=== PATIENT | female | born 1970 | race Caucasian/White ===

== ENCOUNTER 2020-05-05 09:10 | Emergency (ER) | payer OTHER, SELFPAY ==
[2020-05-05] VITALS (18 sets, daily range): BP systolic 137–198; BP diastolic 69–101; PULSE 42–64; RESP 11–29; TEMP 36.9; O2SAT 95–99; BMI 30.5
--- NOTE | 2020-05-05 09:21 | DI.RAD.S_ITS ---
PROCEDURE: XR CHEST 1V INDICATIONS: chest pain TECHNIQUE: One view of the chest was acquired. COMPARISON: None. FINDINGS: Surgical changes and devices: None. Lungs and pleura: Lungs are clear. No pleural effusions or pneumothorax. There may be mild scarring within the lung apices. Mediastinum: Mediastinal contours appear normal. Heart size is normal. Bones and chest wall: No suspicious bony lesions. Degenerative changes of the spine and shoulders are not well characterized. Overlying soft tissues appear unremarkable. IMPRESSION: No acute cardiopulmonary process is evident. Dictated by: Carlos Salmon M.D. on 05/05/2020 at 8:52 Approved by: Carlos Salmon M.D. on 05/05/2020 at 8:53
[2020-05-05 09:26] LABS: Add Manual Diff / Slide Review NO; Basophils Absolute Auto 0 /uL (0-100); Basophils Percent Auto 0.7 % (0-2); Eosinophils Absolute Auto 100 /uL (0-450); Hematocrit 42.4 % (36-46); Hemoglobin 14.8 g/dL (12.0-16.0); Lymphocytes Absolute Auto 1800 /uL (1100-4500); Lymphocytes Percent Auto 37.5 % (25-40); Mean Corpuscular HGB Conc 34.8 % (30-36); Mean Corpuscular Hemoglobin 33.5 PG (26-34); Mean Corpuscular Volume 96.1 fL (80-100); Monocytes Absolute Auto 400 /uL (0-900); Monocytes Percent Auto 9.1 % (3-14); Neutrophils Absolute Auto 2500 /uL (1500-7000); Neutrophils Percent Auto 50.7 % (50-75); Platelet Count 196 X10^3/uL (150-400); Red Blood Cell Count 4.41 X10^6/uL (4.0-5.2); Red Cell Distribution Width 12.9 % (11.6-14.8); White Blood Cell Count 4.9 X10^3/uL (4.5-11.0)
--- NOTE | 2020-05-05 09:29 | ED_ITS ---
HPI - Chest Pain General Chief Complaint: Chest Pain Stated Complaint: pressure in chest Time Seen by Provider: 05/05/20 09:18 Source: patient Mode of arrival: Ambulatory Limitations: no limitations History of Present Illness HPI narrative: Patient is a 50-year-old healthy female who presents with chest pressure it which started this morning. She says she woke up about 430 this morning like she always does not know she had some pressure across her chest. It is nonradiating nothing makes it better or worse it seems to be constant. She denies any shortness of breath with exertion she denies nausea or diaphore sis. complaint: chest pain Onset (ago): hour(s) Duration: constant Onset: during rest Severity: mild Quality: heaviness Pain radiation: none Relieving factors: nothing Exacerbating factors: nothing Related Data Home Medications Medication Instructions Recorded Confirmed No Known Home Medications 05/05/20 05/05/20 Allergies Allergy/AdvReac Type Severity Reaction Status Date / Time No Known Drug Allergies Allergy Verified 05/05/20 09:21 Review of Systems Review of Systems Narrative: GENERAL: Denies chills, fatigue, malaise, fever, sweats, travel HEENT: Denies sinus pain, ear pain, sore throat, difficulty swallowing, neck pain RESPIRATORY: Denies dyspnea, cough, wheezing, hemoptysis, sputum. CARDIOVASCULAR: See HPI GASTROINTESTINAL: Denies nausea, vomiting, abdominal pain, diarrhea, constipation, melena. : Denies dysuria, frequency, incontinence, hematuria, urinary retention, flank pain. MUSCULOSKELETAL: Denies weakness, joint pain, or bony pain SKIN: No rash, no erythema, no pruritus NEUROLOGIC: Denies weakness, dizziness, headache, numbness, change in speech, confusion PSYCHIATRIC: No concerning psychosocial issues. 12 point review of systems is negative except for those stated above and HPI Patient History Social History Smoking Status: Unknown if ever smoked Smoking Status: Unknown if ever smoked alcohol intake frequency: holidays/special occasions only Substance Use Type: does not use Exam Initial Vital Signs Initial Vital Signs: Vital Signs Temperature 98.4 F 05/05/20 09:11 Pulse Rate 53 L 05/05/20 09:11 Respiratory Rate 20 05/05/20 09:11 Blood Pressure 194/101 H 05/05/20 09:11 Pulse Oximetry 99 05/05/20 09:11 GENERAL: Well-appearing, well-nourished and in no acute distress. HEENT: Head atraumatic,EOMI, pupils reactive, face symmetric CARDIOVASCULAR: Regular rate and rhythm without murmurs, rubs or gallops. RESPIRATORY: Breath sounds equal bilaterally, no wheezes rales or rhonchi. ABDOMEN: Soft, nontender. Normoactive bowel sounds all 4 quadrants. No guarding or rebound. RECTAL: Hemoccult-positive, no hemorrhoids, nontender : No CVA tenderness EXTREMITIES: Normal range of motion, no clubbing or edema. Neurovascularly intact NEUROLOGICAL: Alert and oriented x4.Normal gait and speech. SKIN: Warm, dry, no laceration, no petechiae, no rashes or lesions. Scores HEART Score Heart Score history: Slightly Suspicious Heart Score EKG: Normal Heart Score Age: 45-64 years old Heart Score risk factors: No known risk factors Heart Score troponin: < or = to normal limit Heart Score Total: 1 Course Orders Ordered: ED Orders 05/05/20 09:15 Complete Blood Count AUTO DIFF Stat Comprehensive Metabolic Panel Stat Lipase Stat Partial Thromboplastin Time Stat Prothrombin Time INR Stat Troponin & CK Cardiac Panel Stat 05/05/20 09:21 XR chest 1V Stat EKG-12 Lead Stat 05/05/20 10:52 EKG-12 Lead Routine 05/05/20 12:05 Troponin I Stat Discontinued Medications Acetaminophen (Tylenol) 975 mg PO NOW ONE Stop: 05/05/20 10:46 Last Admin: 05/05/20 11:00 Dose: 975 mg Documented by: SABRINA Aspirin (Aspirin Chew) 324 mg PO NOW ONE Stop: 05/05/20 10:00 Last Admin: 05/05/20 10:15 Dose: 324 mg Documented by: SABRINA Nitroglycerin (Nitrostat) 0.4 mg SL [id number] PRN PRN Reason: Chest Pain Last Admin: 05/05/20 10:38 Dose: 0.4 mg Documented by: Admin: 05/05/20 10:21 Dose: 0.4 mg Documented by: SABRINA Vital Signs Vital signs: Vital Signs - 8 hr 05/05/20 09:11 05/05/20 09:16 05/05/20 09:17 Temperature 98.4 F Pulse Rate 53 L 62 58 L Respiratory Rate 20 Blood Pressure 194/101 H Pulse Oximetry 99 99 98 05/05/20 09:30 05/05/20 09:33 05/05/20 10:00 Temperature Pulse Rate 47 L 47 L 44 L Respiratory Rate 29 H 25 H 14 Blood Pressure Pulse Oximetry 98 97 96 05/05/20 10:01 05/05/20 10:30 05/05/20 10:36 Temperature Pulse Rate 46 L 48 L 42 L Respiratory Rate 14 15 18 Blood Pressure 154/70 H 152/72 H 150/81 H Pulse Oximetry 97 96 97 05/05/20 10:38 05/05/20 10:44 05/05/20 11:00 Temperature Pulse Rate 44 L 64 43 L Respiratory Rate 21 11 L Blood Pressure 150/81 H 198/100 H Pulse Oximetry 95 98 05/05/20 11:01 05/05/20 11:15 05/05/20 11:30 Temperature Pulse Rate 42 L 46 L Respiratory Rate 11 L 13 Blood Pressure 165/77 H 149/73 H Pulse Oximetry 97 96 05/05/20 12:00 05/05/20 12:30 05/05/20 13:00 Temperature Pulse Rate 43 L 42 L 48 L Respiratory Rate 16 11 L 15 Blood Pressure 157/78 H 145/71 H 137/69 Pulse Oximetry 97 99 98 MDM - Chest Pain Lab Data Attestation: I reviewed the patient's lab results. Result diagrams: 05/05/20 09:15 05/05/20 09:15 Labs: Lab Results 05/05/20 05/05/20 05/05/20 Range/Units 09:15 09:15 09:15 WBC 4.9 (4.5-11.0) X10^3/uL RBC 4.41 (4.0-5.2) X10^6/uL Hgb 14.8 (12.0-16.0) g/dL Hct 42.4 (36-46) % MCV 96.1 (80-100) fL MCH 33.5 (26-34) PG MCHC 34.8 (30-36) % RDW 12.9 (11.6-14.8) % Plt Count 196 (150-400) X10^3/uL Neut % (Auto) 50.7 (50-75) % Lymph % (Auto) 37.5 (25-40) % [place] % (Auto) 9.1 (3-14) % Eos % (Auto) 2.0 (2-4) % Baso % (Auto) 0.7 (0-2) % Neut # (Auto) 2500 (3065-7152) /uL Lymph # (Auto) 1800 (2052-0070) /uL [place] # (Auto) 400 (0-900) /uL Eos # (Auto) 100 (0-450) /uL Baso # (Auto) 0 (0-100) /uL PT 11.1 (10.1-12.7) SECONDS INR 1.0 (0.9-1.3) APTT 32 (26.4-36.2) SECONDS Sodium 137 (137-145) mmol/L Potassium 5.0 (3.4-5.1) mmol/L Chloride 101 (98-107) mmol/L Carbon Dioxide 28 (22-32) mmol/L BUN 16 (7-17) mg/dL Creatinine 0.80 (0.52-1.04) mg/dL Estimated GFR > 60.0 (>60) mL/min BUN/Creatinine Ratio 20.0 (6-22) Glucose 101 H (70-100) mg/dL Calcium 9.9 (8.4-10.2) mg/dL Total Bilirubin 1.3 (0.2-1.3) mg/dL AST 81 H (14-36) IU/L ALT 101 H (<35) IU/L Alkaline Phosphatase 60 (38-126) U/L Total Creatine Kinase 136 H (30-135) U/L CK-MB (CK-2) 1.40 (<2.37) ng/mL CK-MB (CK-2) Rel Index 1.0 L (1.5-5.0) % Troponin I 0.016 (0.01-0.034) ng/mL Total Protein 8.0 (6.3-8.2) g/dL Albumin 4.7 (3.5-5.0) g/dL Globulin 3.3 (1.7-4.1) g/dL Albumin/Globulin Ratio 1.4 (1.0-2.8) Lipase 83 (23-300) U/L 05/05/20 Range/Units 12:05 WBC (4.5-11.0) X10^3/uL RBC (4.0-5.2) X10^6/uL Hgb (12.0-16.0) g/dL Hct (36-46) % MCV (80-100) fL MCH (26-34) PG MCHC (30-36) % RDW (11.6-14.8) % Plt Count (150-400) X10^3/uL Neut % (Auto) (50-75) % Lymph % (Auto) (25-40) % [place] % (Auto) (3-14) % Eos % (Auto) (2-4) % Baso % (Auto) (0-2) % Neut # (Auto) (4630-4852) /uL Lymph # (Auto) (0345-2967) /uL [place] # (Auto) (0-900) /uL Eos # (Auto) (0-450) /uL Baso # (Auto) (0-100) /uL PT (10.1-12.7) SECONDS INR (0.9-1.3) APTT (26.4-36.2) SECONDS Sodium (137-145) mmol/L Potassium (3.4-5.1) mmol/L Chloride (98-107) mmol/L Carbon Dioxide (22-32) mmol/L BUN (7-17) mg/dL Creatinine (0.52-1.04) mg/dL Estimated GFR (>60) mL/min BUN/Creatinine Ratio (6-22) Glucose (70-100) mg/dL Calcium (8.4-10.2) mg/dL Total Bilirubin (0.2-1.3) mg/dL AST (14-36) IU/L ALT (<35) IU/L Alkaline Phosphatase (38-126) U/L Total Creatine Kinase (30-135) U/L CK-MB (CK-2) (<2.37) ng/mL CK-MB (CK-2) Rel Index (1.5-5.0) % Troponin I < 0.012 (0.01-0.034) ng/mL Total Protein (6.3-8.2) g/dL Albumin (3.5-5.0) g/dL Globulin (1.7-4.1) g/dL Albumin/Globulin Ratio (1.0-2.8) Lipase (23-300) U/L Imaging Data Chest x-ray: Radiologist's Impression: PROCEDURE: XR CHEST 1V INDICATIONS: chest pain TECHNIQUE: One view of the chest was acquired. COMPARISON: None. FINDINGS: Surgical changes and devices: None. Lungs and pleura: Lungs are clear. No pleural effusions or pneumothorax. There may be mild scarring within the lung apices. Mediastinum: Mediastinal contours appear normal. Heart size is normal. Bones and chest wall: No suspicious bony lesions. Degenerative changes of the spine and shoulders are not well characterized. Overlying soft tissues appear unremarkable. IMPRESSION: No acute cardiopulmonary process is evident. Dictated by: Carlos Salmon M.D. on 05/05/2020 at 8:52 Approved by: Carlos Salmon M.D. on 05/05/2020 at 8:53 ECG Data Attestation: I personally reviewed and interpreted this ECG as follows: Prior ECG tracings: not available for review Interpretation: Normal sinus rhythm rate 65 p.r. interval 148 QRS [address] elevation or depression, Q-waves noted in AVF and lead 3 EKG 2. Normal sinus rhythm rate 42 p.r. interval 186 QRS [address] elev ation depression or T-wave inversions similar to previous EKG MDM Narrative Medical decision making narrative: Chest discomfort improved after 2 nitroglycerin. She has low risk heart score 2-troponins no changes on her EKG. She is noted to be bradycardic at times but seems a completely asymptomatic. At this time I recommend she follow up at as an outpatient. I discussed all findings with the patient and spouse, Education has been performed regarding treatment plan, diagnosis, warning signs and symptoms and all concerns have been addressed. Verbally agree with and understood all of the above. Discharge Plan Departure Patient Disposition: Home Clinical Impression: Atypical chest pain Discharge Date/Time: 05/05/20 13:20 Instructions: DI for Atypical Chest Pain Activity Restrictions/Additional Instructions: *You have been diagnosed with atypical chest pain *What to do: At this time her blood work is overall reassuring however I recommend he follow up with her PCP for further cardiac evaluation such as a stress test and/or echocardiogram *Continue to take medications as directed *Follow up with your primary care provider in 2-3 days *Return to ER if you should have increasing or worsening chest pain shortness of breath, or any new, worsening or concerning symptoms Prescriptions: No Action No Known Home Medications RF: 0 Referrals: Kylie Vargas DO [Primary Care Provider] -
[2020-05-05 09:32] LABS: Prothrombin Time 11.1 SECONDS (10.1-12.7)
[2020-05-05 09:35] LABS: PTT Partial Thromboplastin Tim 32 SECONDS (26.4-36.2)
[2020-05-05 09:38] LABS: Alanine Aminotransferase 101 IU/L (<35); Albumin 4.7 g/dL (3.5-5.0); Albumin Globulin Ratio 1.4 (1.0-2.8); Alkaline Phosphatase 60 U/L (38-126); Aspartate Aminotransferase 81 IU/L (14-36); Bilirubin Total 1.3 mg/dL (0.2-1.3); Blood Urea Nitrogen 16 mg/dL (7-17); Calcium 9.9 mg/dL (8.4-10.2); Carbon Dioxide 28 mmol/L (22-32); Chloride 101 mmol/L (98-107); Creatine Kinase 136 U/L (30-135); Estimated Glomerular Filt Rate > 60.0 mL/min (>60); Globulin 3.3 g/dL (1.7-4.1); Glucose 101 mg/dL (70-100); Lipase 83 U/L (23-300); Sodium 137 mmol/L (137-145)
[2020-05-05 09:48] LABS: Troponin I 0.016 ng/mL (0.01-0.034)
[2020-05-05 09:53] LABS: HEMOLYSIS 86 (0-50)
[2020-05-05] MEDS: ASPIRIN 81 MG CHEW TAB 324 MG PO (10:15)
[2020-05-05] MEDS: NITROGLYCERIN 0.4 MG SL TAB SL ×2 (10:21→10:38)
--- NOTE | 2020-05-05 10:21 | PC.NURSE ---
chest pain 6/10, one nitro given
--- NOTE | 2020-05-05 10:46 | PC.NURSE ---
after second nitro pt's pain is 0/10
[2020-05-05] MEDS: ACETAMINOPHEN 325 MG TABLET 975 MG PO (11:00)
--- NOTE | 2020-05-05 12:13 | PC.NURSE ---
pt heart rate in the high 30's. pt states she feels fine, denies cp, sob, dizziness. pt states her heart rate is normally in the 40's.
[2020-05-05 12:47] LABS: Troponin I < 0.012 ng/mL (0.01-0.034)
== END 2020-05-05 13:20 | disposition home or self-care (01) ==
PROVIDERS: Emergency Provider Emergency Medicine; PCP Family Medicine
DX: R07.89 Other chest pain (principal)
CPT/HCPCS: 36415; 71045; 80053; 82550; 82553; 83690; 84484; 85025; 85610; 85730; 93005; 99284

== ENCOUNTER → 2020-09-03 14:00 | Outpatient (CLI) | payer OTHER, SELFPAY ==
[2020-09-05 02:25] LABS: COVID19 Sendout Not Detected (Not Detect)
== END ==
PROVIDERS: PCP Family Medicine; Visit Provider Nurse Practitioner
DX: Z11.59 Encounter for screening for other viral diseases (principal)
CPT/HCPCS: 87635

== ENCOUNTER → 2020-10-08 08:11 | Outpatient (CLI) | payer OTHER, SELFPAY ==
[2020-10-08 09:52] LABS: COVID19 -Nasal RAPID Negative (Negative)
== END ==
PROVIDERS: PCP Family Medicine; Visit Provider Physician Assistant
DX: Z11.59 Encounter for screening for other viral diseases (principal)
CPT/HCPCS: 87635

== ENCOUNTER → 2020-10-10 13:14 | Outpatient (CLI) | payer OTHER, SELFPAY ==
--- NOTE | 2020-10-10 | DI.US.S_ITS ---
PROCEDURE: US ABDOMEN LIMITED INDICATIONS: CHEST PAIN; ABNORMAL LFTS TECHNIQUE: Real-time scanning was performed of the abdominal and retroperitoneal organs, with image documentation. COMPARISON: None. FINDINGS: Liver: The liver measures 21.2 cm in length and demonstrates increased echogenicity. Gallbladder: The gallbladder wall measures 1.6 mm in diameter. No stones, sludge, pericholecystic fluid, or sonographic Christiansen sign. Biliary ducts: Intrahepatic bile ducts are non-dilated. Extrahepatic bile duct caliber measures 5.1 mm. Normal is 6-7 mm or less in diameter, or 10 mm or less post-cholecystectomy. Pancreas: Visualized portions of the pancreas are sonographically normal. IMPRESSION: 1. Hepatomegaly and hepatic echogenicity noted likely related to fatty infiltration of the liver but other sources of hepatocellular disease cannot be excluded. 2. No cholelithiasis or findings to suggest choledocholithiasis or acute cholecystitis. Dictated by: Emy Mittal M.D. on 10/10/2020 at 16:11 Approved by: Emy Mittal M.D. on 10/10/2020 at 16:13
--- NOTE | 2020-10-10 | DI.ECHO.S_ITS ---
[facility]---------+ [facility] +---------+ : : [address] [place] : : : : [id number] : : : : Phone: [phone] Echocardiogram Report + + :Name: FAWAD MUNIZ Study Date: 10/10/2020 Height: 72 in : :[facility] Weight: 242 lb : : Gender: Female BSA: 2.3 m2 : :: 1970 Age: 50 yrs BP: 131/65 mmHg: :Reason For Study: CHEST PAIN : :Ordering Physician: IVAN, : :VIVIANA Performed By: Thania Real : :Referring: VIVIANA LOVE : + + Interpretation Summary The patient was in sinus bradycardia with heart rates between 37-44 bpm during the exam. The left ventricle is normal in size and wall thickness. The ejection fraction is estimated to be 60-65%. The right ventricle is normal in size and function. There is mild mitral regurgitation. The IVC is of normal diameter and collapses greater than 50% with a sniff. This suggests a low right atrial pressure of 3 mm Hg. Procedure: A two-dimensional transthoracic echocardiogram with color flow and Doppler was performed. The study quality was technically adequate. There is no prior echocardiogram noted for this patient. The patient was in sinus bradycardia with heart rates between 37-44 bpm during the exam. Left Ventricle: The left ventricle is normal in size and wall thickness. There is no thrombus. The ejection fraction is estimated to be 60-65%. There are no focal wall motion abnormalities. Diastolic parameters suggest probable normal left ventricular diastolic function and normal filling pressures. Right Ventricle: The right ventricle is normal in size and function. Atria: The left atrium is mildly dilated. Right atrial size is normal. There is no Doppler evidence for an interatrial shunt. Mitral Valve: The mitral valve leaflets are slightly calcified. There is mild mitral regurgitation. Aortic Valve: The aortic valve is trileaflet. The aortic valve opens well. There is no aortic valve stenosis. No aortic regurgitation is present. Tricuspid Valve: The tricuspid valve is normal in structure and function. There is trace tricuspid regurgitation. Pulmonary artery pressures cannot be estimated because of the lack of a measurable TR jet velocity. Pulmonic Valve: The pulmonic valve is not well visualized. There is no pulmonic valvular regurgitation. Great Vessels: The aortic root is normal size. The ascending aorta is at the upper limits of normal in size. The IVC is of normal diameter and collapses greater than 50% with a sniff. This suggests a low right atrial pressure of 3 mm Hg. Pericardium/ Pleura There is no pericardial effusion. There is no pleural effusion. MMode/2D Measurements & Calculations LVIDd: 4.7 cm LVOT diam: 2.3 cm LVIDs: 3.0 cm Ao root diam: 3.3 cm FS: 36.0 % asc Aorta Diam: 3.4 cm EPSS: 0.42 cm Ao Arch Diam (Prox Trans): 2.8 cm IVSd: 0.90 cm LVPWd: 1.1 cm LV danielle. diameter/BSA (cm/m^2): 2.0 LV sys. diameter/BSA (cm/m^2): 1.3 LA A2 area: 24.8 cm2 RA long axis: 6.0 cm LA A4 area: 21.9 cm2 RA area: 21.1 cm2 LA length (vol): 5.8 cm RA vol: 63.5 ml LA vol: 79.0 ml RA : 27.5 ml/m2 LA vol index: 34.2 ml/m2 IVC diam: 1.9 cm RVD1 (basal): 4.0 cm TAPSE: 2.6 cm Doppler Measurements & Calculations Ao V2 max: 147.8 cm/sec LVOT Max Brian: 92.7 cm/sec Ao V2 mean: 89.2 cm/sec LV V1 max P.4 mmHg Ao max P.7 mmHg LV V1 VTI: 24.7 cm Ao mean P.8 mmHg JORDAN(I,D): 3.6 cm2 Ao V2 VTI: 29.9 cm JORDAN(V,D): 2.7 cm2 sev ratio: 0.83 JORDAN indexed to BSA (cm^2/m^2): 1.5 MV E max brian: 52.1 cm/sec TR max brian: 188.0 cm/sec MV A max brian: 51.3 cm/sec TR max P.1 mmHg MV E/A: 1.0 PA V2 max: 54.2 cm/sec Med Peak E' Brian: 8.2 cm/sec PA V2 mean: 36.4 cm/sec E/E' med: 6.3 PA mean P.62 mmHg Lat Peak E' Brian: 10.7 cm/sec PA pr(Accel): 19.9 mmHg E/E' lat: 4.9 E/e' average: 5.6 MV dec time: 0.56 sec SV(LVOT): 106.7 ml Reading Physician:01:06 PM
--- NOTE | 2020-10-10 | DI.NM.S_ITS ---
PROCEDURE: NM EXERCISE TREADMILL NON NUC COMPARISON: None. INDICATIONS: chest pain, abnormal results of liver function FINDINGS: The patient exercised for 12 minutes and 5 seconds, reaching 89% of maximum predicted heart rate. Borderline hypertensive response to exercise (resting BP 122/80mmHg, max BP 210/100mmHg). Excellent exercise capacity (12.8 METs, MAN MAN -62%). No angina during the study. No ST-T changes to suggest ischemia. Rare PVCs during the study. IMPRESSION: Low risk, normal treadmill ECG only stress test 1) No ECG evidence of ischemia. 2) No angina during the study. 3) Excellent exercise capacity (12.8 METs, MAN MAN -62%). Target heart rate achieved. Borderline hypertensive response to exercise (resting BP 122/80mmHg, max BP 210/100mmHg). 4) No prior stress test available for comparison. Dictated by: Kavitha Xiao MD on 10/10/2020 at 16:56 Approved by: Kavitha Xiao MD on 10/10/2020 at 17:00
--- NOTE | 2020-10-10 16:02 | PM.TREADMILL ---
Cardiac Stress Test Report Referral & Results Date Patient Seen: 10/10/20 Time Patient Seen: 16:02 Requesting provider: Izabela Hendrix Indication: chest pain Rest ECG: sinus bradycardia with T wave inversion in III, aVF Procedure Note: Standard Remberto protocol, 12:51 minutes, 12.8 METS Excellent exercise capacity, MAN -62% Normal hemodynamic response to exercise No chest pain or angina symptoms No ST changes at peak exercise, rare PVC Impression: Normal exercise stress test Please note: Actual ECG tracings can be found in the PACS system.
== END ==
PROVIDERS: PCP Family Medicine; Referring Provider Internal Medicine Cardiovascular Disease; Visit Provider Internal Medicine Cardiovascular Disease
DX: I34.0 Nonrheumatic mitral (valve) insufficiency (principal); R07.9 Chest pain, unspecified; R79.89 Other specified abnormal findings of blood chemistry; R16.0 Hepatomegaly, not elsewhere classified
CPT/HCPCS: 76705; 93017; 93306

== ENCOUNTER → 2021-01-19 15:26 | Outpatient (CLI) | payer OTHER, SELFPAY ==
--- NOTE | 2021-01-19 | DI.MG.S_ITS ---
BILATERAL DIGITAL SCREENING MAMMOGRAM 3D/2D WITH CAD: 01/19/2021 CLINICAL: Routine screening. Family history of breast cancer. Comparison is made to exams dated: 02/06/2016 mammogram - [facility], 03/12/2014 mammogram - [facility], 10/27/2013 mammogram, and 02/18/2013 mammogram - [facility]. The tissue of both breasts is heterogeneously dense. This may lower the sensitivity of mammography. Current study was also evaluated with a Computer Aided Detection (CAD) system. There are linear fine calcifications in the left breast at 8 o'clock anterior depth. No other significant masses, calcifications, or other findings are seen in either breast. IMPRESSION: INCOMPLETE: NEEDS ADDITIONAL IMAGING EVALUATION The linear fine calcifications in the left breast are indeterminate. Mediolateral, spot magnification, and additional views are recommended. This exam was interpreted at Station ID: [id number]. NOTE: For mammograms, a report in lay terms will be sent to the patient. Approximately 15% of breast malignancies will not be visualized mammographically. In the management of a palpable breast mass, a negative mammogram must not discourage biopsy of a clinically suspicious lesion. Electronically Signed By: Sincere haynes/danielito:01/19/2021 16:30:51 letter sent: Additional Imaging Needed ACR BI-RADS Category 0: Incomplete [id number]
== END ==
PROVIDERS: PCP Family Medicine; Referring Provider Family Medicine; Visit Provider Family Medicine
DX: Z12.31 Encounter for screening mammogram for malignant neoplasm of breast (principal); Z80.3 Family history of malignant neoplasm of breast
CPT/HCPCS: 77063; 77067

== ENCOUNTER → 2021-04-10 14:41 | Outpatient (CLI) | payer OTHER, SELFPAY ==
--- NOTE | 2021-04-10 14:42 | DI.MG.S_ITS ---
UNILATERAL LEFT DIGITAL DIAGNOSTIC MAMMOGRAM 3D/2D WITH ADDITIONAL VIEWS: 04/10/2021 CLINICAL: Additional evaluation requested from prior study. Comparison is made to exams dated: 01/19/2021 mammogram - [facility], 02/06/2016 mammogram - [facility], and 03/12/2014 mammogram - [facility]. The tissue of left breast is heterogeneously dense. This may lower the sensitivity of mammography. There are linear fine calcifications in the left breast at 8 o'clock anterior depth. These are not significantly changed. No other significant masses or calcifications are seen in the breast. IMPRESSION: PROBABLY BENIGN The linear fine calcifications in the left breast are probably benign. A follow-up mammogram in 6 months is recommended. A follow-up left mammogram in 6 months is recommended to demonstrate stability. This exam was interpreted at Station ID: [id number]. NOTE: For mammograms, a report in lay terms will be sent to the patient. Approximately 15% of breast malignancies will not be visualized mammographically. In the management of a palpable breast mass, a negative mammogram must not discourage biopsy of a clinically suspicious lesion. Electronically Signed By: Karina south/danielito:04/10/2021 15:36:40 letter sent: Followup Recommended ACR BI-RADS Category 3: Probably benign [id number]
== END ==
PROVIDERS: PCP Family Medicine; Referring Provider Family Medicine; Visit Provider Family Medicine
DX: R92.1 Mammographic calcification found on diagnostic imaging of breast (principal)
CPT/HCPCS: 77065; G0279

== ENCOUNTER → 2021-04-24 10:28 | Outpatient (CLI) | payer OTHER, SELFPAY ==
[2021-04-25 14:36] LABS: COVID19 -Nasal RAPID Negative (Negative)
== END ==
PROVIDERS: PCP Family Medicine; Referring Provider Surgery; Visit Provider Surgery
DX: Z20.822 Contact with and (suspected) exposure to COVID-19 (principal)
CPT/HCPCS: 87635; C9803

== ENCOUNTER 2021-04-27 08:58 | Day surgery (SDC) | payer OTHER, SELFPAY ==
[2021-04-27] VITALS (9 sets, daily range): BP systolic 126–156; BP diastolic 77–90; PULSE 53–61; RESP 13–19; TEMP 36.4–36.6; O2SAT 95–100; BMI 29.8
--- NOTE | 2021-04-27 | PATH_ITS ---
[facility] Accession Number: [id number] . 01 Material submitted: . colon - MUCOSAL BIOPSY AT 30 CM . 02 Diagnosis: Colon, 30 cm, Mucosal Biopsy: Hyperplastic colonic mucosa with patchy extravasated red blood cells in the lamina propria. Please see comment. Negative for active, chronic, and microscopic colitis. Negative for dysplasia and malignancy. [facility] 05/02/2021 1312 Local . 02 Comment: There are patchy extravasated red blood cells on the lamina propria without features of microscopic or chronic colitis. There is no evidence of dysplasia. The differential diagnosis includes procedure related changes, trauma/prolapse/diverticular disease associated changes, or, less likely, early ischemia type changes. . 02 Electronically signed: . Amelia Ashraf MD, Pathologist NPI- [id number] . 01 Gross description: . MUCOSAL BIOPSY AT 30 CM: Received in formalin are 2 fragment(s) of florez, soft tissue measuring 0.7 x 0.2 x 0.1 cm to 0.6 x 0.2 x 0.1 cm submitted entirely in 1 cassette(s) /JORDAN 04/28/2021 0451 Local . 02 Pathologist provided ICD-10: Z12.11 . 02 CPT . 926775 Performed at: 01 [facility] Cyt[facility] [address], [place], [place] [id number] MD Sincere Nowak MD Phone: [phone] Performed at: 02 [facility] [address] [place], [place] [id number] MD Amelia Ashraf MD Phone: [phone]
[2021-04-27] MEDS: SODIUM CHLORIDE 0.9% 1,000 ML 200 ML IV (09:38)
--- NOTE | 2021-04-27 10:03 | PM.HP.1 ---
History of Present Illness History of Present Illness Date Patient Seen: 04/27/21 Time Patient Seen: 10:03 Chief complaint: SDC Narrative: This is a 51-year-old woman who is here for her 1st screening colonoscopy. She denies any melena, hematochezia, unexplained abdominal pain, unexplained weight loss. She has no known family history of colon polyps or colon cancers. She says she is otherwise in good health, and only has hypertension which is controlled on medication. ROS: Thirteen system review is otherwise negative other than as mentioned below and in HPI. PE: GENERAL: Well groomed and cooperative. Appears stated age. Answers questions promptly and appropriately. Vital signs noted. HENT: Normocephalic, atraumatic. Hearing intact. EYES: Conjunctiva pink, sclera white, no periorbital swelling. CARDIOVASCULAR: Regular rate. No pedal edema. RESPIRATORY: Non-tachypneic, breathing comfortably on room air. GASTROINTESTINAL: Abdomen soft and non-distended GENITALURINARY: No flank tenderness. MUSCULOSKELETAL: Equal tone and mass bilaterally. SKIN: Warm, dry, soft, appropriate color for ethnicity. No other lesions, rashes, or wounds. NEURO: Alert and Oriented X 3. No gross sensory deficits, or cognitive issues. PSYCH: Appropriate affect and mood. Patient History Family & Social History Social History: household members spouse Tobacco & Substance use: Smoking Status Never smoker alcohol intake frequency holiday/special occasion Substance Use Type does not use Meds Home Medications and Allergies Home Medications Medication Instructions Recorded Confirmed Type flaxseed 1 mg PO DAILY 04/27/21 04/27/21 History hydrochlorothiazide 12.5 mg PO DAILY 04/27/21 04/27/21 History melatonin 3 mg PO BEDTIME PRN 04/27/21 04/27/21 History Allergies Allergy/AdvReac Type Severity Reaction Status Date / Time Penicillins AdvReac Intermediate Rash Verified 04/27/21 09:19 Exam Vital Signs (past 8 hours): - 04/27/21 09:21 Temperature 97.8 F Pulse Rate 61 Respiratory Rate 16 Blood Pressure 138/90 Pulse Oximetry 97 Oxygen Delivery Method Room Air Assessment & Plan Assessment and plan (1) At average risk for colon cancer: Status: Acute Assessment & Plan narrative: Risks and benefits of screening colonoscopy and possible polypectomy were discussed with the patient including risk of bleeding, perforation, need for additional procedures, risks of anesthesia. The patient desires to proceed with the colonoscopy procedure. COVID-19 COVID-19 status: Negative Result date/Date tested (Pos, Neg/Pending): 04/24/21 Time Spent With Patient Time with patient: 15-24 minutes Quality VTE Deep Vein Thrombosis/Pulmonary Embolism Present on Admission: No
--- NOTE | 2021-04-27 10:05 | P.OP.ENDO_ITS ---
Operative Date/Time/Diagnoses Date of procedure: 04/27/21 Time of procedure: 10:05 Pre-op diagnosis: Average risk for colon cancer, due for screening colonoscopy Post-op diagnosis: other (Abnormal here mucosa in the sigmoid colon at 30 cm, extensive diverticulosis) Procedure & Clinicians Study performed: Colonoscopy Procedural sedation performed by the endoscopist Biopsy of abnormal sigmoid colon at 30 cm Tattoo of biopsy site Same procedure as scheduled: Yes Indications: Average risk for colon cancer, due for screening colonoscopy Surgeon: Payton Lugo Procedure Notes SCOAP/Timeout: Performed Procedure in detail: The patient was brought to the room and placed in left lateral decubitus position with all bony prominences padded. A time-out was performed and then the patient was given procedural sedation starting with 4 mg of Versed and 100 mcg of fentanyl. A total of 8 mg of Versed and 200 micro g of fentanyl were given for the entire procedure. Vitals were monitored throughout the procedure and remained stable. Once adequately sedated, the procedure was begun. A rectal exam was performed revealing no abnormalities. The colonoscope was then introduced to the rectum and advanced to the cecum in the usual fashion. The cecum was identified by the appendiceal orifice, the mucosal tri- fold, and the ileocecal valve. The scope was then retracted while rotating side to side and examining each mucosal fold. Diverticulosis was seen throughout the colon, most severe in the sigmoid colon. The prep was not adequate to see things smaller than 5 mm due to solid stool. Within that cavity out, no polyps were seen. An abnormal patch of mucosa was seen at 30 cm in the sigmoid colon, representing possible inflammatory or infectious etiology. Biopsies were taken. The area was tattooed using ink spot. At the conclusion of the procedure retroflexion was performed and small grade 1-2 internal hemorrhoids without stigmata of bleeding were seen. The scope was then withdrawn from the rectum the procedure was concluded. The patient tolerated the procedure well and was transferred to the PACU in stable condition. Scope withdrawal time: 14 Sedation minutes: 29 Findings: diverticulosis and other findings (Possible colitis) Specimen(s): other (Biopsy of abnormal mucosa, possible inflammatory, in sigmoid colon) Complications: none Impression: Extensive diverticulosis, most severe in the sigmoid and descending colon. Small patch of abnormal mucosa at 30 cm in the sigmoid colon, which may represent inflammatory or infectious change in the mucosa. Post-procedure Recommendations: Colonscopy in 10 years, High fiber diet (Fiber supplement) and Other recommendation (Any further recommendations related to the biopsy results will be communicated to the patient once the results are received.) Follow up: as needed Disposition: PACU
[2021-04-27] MEDS: fentaNYL 250 MCG/5 ML INJ IV (10:24)
[2021-04-27] MEDS: MIDAZOLAM 5 MG/5 ML VIAL IV (10:24)
== END 2021-04-27 11:29 | disposition home or self-care (01) ==
PROVIDERS: PCP Family Medicine; Referring Provider Surgery; Visit Provider Surgery
PROC: 0DJD8ZZ Inspection of Lower Intestinal Tract, Via Natural or Artificial Opening Endoscopic (ICD-10-PCS; CPT 45378; principal; 2021-04-27 10:00)
DX: Z12.11 Encounter for screening for malignant neoplasm of colon (principal); K64.0 First degree hemorrhoids; K57.30 Diverticulosis of large intestine without perforation or abscess without bleeding
CPT/HCPCS: 45380; 45381; 99152; 99153; J2250; J3010

== ENCOUNTER → 2022-04-25 13:20 | Outpatient (CLI) | payer OTHER, SELFPAY ==
--- NOTE | 2022-04-25 | DI.MG.S_ITS ---
BILATERAL DIGITAL DIAGNOSTIC MAMMOGRAM 3D/2D SHORT-TERM FOLLOW-UP: 04/25/2022 CLINICAL: Short term follow up of the left breast, due for bilateral imaging. Comparison is made to exams dated: 04/10/2021 mammogram, 01/19/2021 mammogram - [facility], and 02/06/2016 mammogram - [facility]. The tissue of both breasts is heterogeneously dense. This may lower the sensitivity of mammography. There are stable benign post operative findings in the left breast. There are linear fine calcifications in the left breast at 8 o'clock anterior depth. These are not significantly changed. No other significant masses, calcifications, or other findings are seen in either breast. IMPRESSION: PROBABLY BENIGN The linear fine calcifications in the left breast are probably benign. A follow-up mammogram in 12 months is recommended. This exam was interpreted at Station ID: [id number]. NOTE: For mammograms, a report in lay terms will be sent to the patient. Approximately 15% of breast malignancies will not be visualized mammographically. In the management of a palpable breast mass, a negative mammogram must not discourage biopsy of a clinically suspicious lesion. Electronically Signed By: Tavares alcocer/danielito:04/25/2022 15:10:03 letter sent: Followup Recommended ACR BI-RADS Category 3: Probably benign 3343F
== END ==
PROVIDERS: PCP Family Medicine; Referring Provider Family Medicine; Visit Provider Family Medicine
DX: R92.8 Other abnormal and inconclusive findings on diagnostic imaging of breast (principal); N63.0 Unspecified lump in unspecified breast; R92.1 Mammographic calcification found on diagnostic imaging of breast
CPT/HCPCS: 77066; G0279

== ENCOUNTER 2023-02-27 17:05 | Emergency (ER) | payer OTHER, SELFPAY ==
[2023-02-27 17:21] VITALS: BP 137/63; PULSE 47; RESP 20; TEMP 36.9; O2SAT 99; BMI 29.8
--- NOTE | 2023-02-27 17:27 | DI.RAD.S_ITS ---
PROCEDURE: XR FOOT LT MIN 3V INDICATIONS: injury TECHNIQUE: 3 views of the foot were acquired. COMPARISON: None. FINDINGS: Bones: There is a mildly comminuted distal left fibular fracture which is better evaluated on dedicated imaging of the ankle. Please see separate report. Visualized osseous structures of the left foot appear intact. No other fracture seen. Normal alignment. Prominent plantar calcaneal enthesophyte. No fractures or dislocations. No suspicious bony lesions. Soft tissues: No tibiotalar joint effusion. Achilles tendon appears normal. IMPRESSION: Mildly displaced, comminuted distal left fibular fracture. Prominent plantar calcaneal enthesophyte. Dictated by: Troy Jackson M.D. on 02/27/2023 at 18:07 Approved by: Troy Jackson M.D. on 02/27/2023 at 18:08
--- NOTE | 2023-02-27 17:27 | DI.RAD.S_ITS ---
PROCEDURE: XR ANKLE LT MIN 3V INDICATIONS: TECHNIQUE: 3 views of the ankle were acquired. COMPARISON: None. FINDINGS: Bones: There is a mildly comminuted, displaced fracture of the distal left fibula, proximal to the syndesmosis. Ankle mortise appears intact. Remainder of the visualized osseous structures appear intact. Prominent plantar calcaneal enthesophyte. Soft tissues: No tibiotalar joint effusion. Achilles tendon appears normal. IMPRESSION: Mildly displaced, comminuted fracture of the distal left fibula. Plantar calcaneal enthesopathy. Dictated by: Troy Jackson M.D. on 02/27/2023 at 17:58 Approved by: Troy Jackson M.D. on 02/27/2023 at 17:59
--- NOTE | 2023-02-27 19:43 | ED.LOWEXIN ---
HPI - Extremity Injury (Lower) General Chief Complaint: Extremity Injury, Lower Stated Complaint: trip and fall, foot pain Time Seen by Provider: 02/27/23 19:27 Source: EMS Mode of arrival: EMS History of Present Illness HPI Narrative: Patient is a 53-year-old healthy female who presents today with left ankle pain swelling. She states that she was hiking she tripped over a root. Had instant pain, not able to bear weight or ambulate. No other injury Related Data Home Medications Medication Instructions Recorded Confirmed flaxseed 1,000 mg capsule 1 mg PO DAILY 04/27/21 04/27/21 hydrochlorothiazide 12.5 mg tablet 12.5 mg PO DAILY 04/27/21 04/27/21 melatonin 3 mg tablet 3 mg PO BEDTIME PRN Sleep 04/27/21 04/27/21 Previous Rx's Medication Instructions Recorded hydrocodone 5 mg-acetaminophen 325 1 tab PO Q6H PRN pain #10 tabs 02/27/23 mg tablet Allergies Allergy/AdvReac Type Severity Reaction Status Date / Time Penicillins AdvReac Intermediate Rash Verified 02/27/23 17:27 Review of Systems Review of Systems ROS Unobtainable: All systems reviewed & are unremarkable except as noted in HPI and below Patient History Social History household members: spouse Smoking Status: Never smoker Smoking Status: Never smoker alcohol intake frequency: holidays/special occasions only Substance Use Type: does not use Exam Initial Vital Signs Initial Vital Signs: Vital Signs Temperature 98.4 F 02/27/23 17:21 Pulse Rate 47 L 02/27/23 17:21 Respiratory Rate 20 02/27/23 17:21 Blood Pressure 137/63 02/27/23 17:21 Pulse Oximetry 99 02/27/23 17:21 Oxygen Delivery Method Room Air 02/27/23 17:21 GENERAL: Tearful alert 53-year-old female CARDIOVASCULAR: peripheral pulses in tact, cap refill <2 sec RESPIRATORY: No respiratory distress, speaks in full sentences without difficulty [ABDOMEN: Soft, nontender, no guarding or rebound] EXTREMITIES: Normal range of motion, no clubbing or edema. Neurovascularly intact Left lower extremity obvious swelling pain laterally lateral malleoli distal pedal pulse present. Foot minimally tender NEUROLOGICAL: Cranial nerves II through XII grossly intact. Normal gait and speech. SKIN: Warm, dry, no petechiae, no rashes or lesions. Procedures Orthopedic Splinting/Casting Injury #1: Lower Extremity Injury Location: ankle Lower Extremity Immobilizer: boot orthosis Post splinting neuro exam: intact Post splinting vascular exam: intact Placed by: Nursing Course Orders Ordered: ED Orders 02/27/23 17:27 XR ankle LT min 3V Stat XR foot LT min 3V Stat Discontinued Medications Hydrocodone Bitart/Acetaminophen (Hydrocodone/Acet 5/325 Prepack) 1 bottle MISC SEEINSTR ONE Stop: 02/27/23 19:54 Last Admin: 02/27/23 20:00 Dose: 1 bottle Documented By: ROSALIND Vital Signs Vital signs: Vital Signs - 8 hr 02/27/23 19:50 Pulse Rate 55 L Respiratory Rate 18 Blood Pressure 182/92 H Pulse Oximetry 99 Oxygen Delivery Method Room Air MDM - Extremity Injury (Lower) Imaging Data Extremity x-ray #1: Radiologist's Impression: PROCEDURE:? XR FOOT LT MIN 3V ? INDICATIONS:? injury ? TECHNIQUE:? 3 views of the foot were acquired.? ? COMPARISON:? None. ? FINDINGS:? ? Bones:? There is a mildly comminuted distal left fibular fracture which is better evaluated on dedicated imaging of the ankle.? Please see separate report.? Visualized osseous structures of the left foot appear intact.? No other fracture seen.? Normal alignment.? Prominent plantar calcaneal enthesophyte.? No fractures or dislocations.? No suspicious bony lesions.? ? Soft tissues:? No tibiotalar joint effusion.? Achilles tendon appears normal.? ? ? IMPRESSION:? Mildly displaced, comminuted distal left fibular fracture. ? Prominent plantar calcaneal enthesophyte. ? ? Dictated by: Troy Jackson M.D. on 02/27/2023 at 18:07 ? ? Extremity x-ray #2: Radiologist's Impression: PROCEDURE:? XR ANKLE LT MIN 3V ? INDICATIONS:? ? TECHNIQUE:? 3 views of the ankle were acquired.? ? COMPARISON:? None. ? FINDINGS:? ? Bones:? There is a mildly comminuted, displaced fracture of the distal left fibula, proximal to the syndesmosis.? Ankle mortise appears intact. Remainder of the visualized osseous structures appear intact.? Prominent plantar calcaneal enthesophyte. ? Soft tissues:? No tibiotalar joint effusion.? Achilles tendon appears normal.? ? ? IMPRESSION:? Mildly displaced, comminuted fracture of the distal left fibula. ? Plantar calcaneal enthesopathy. ? Dictated by: Troy Jackson M.D. on 02/27/2023 at 17:58 ? ? MDM Narrative Medical decision making narrative: Patient healthy 53-year-old female to for a after mechanical trip and fall. She has left distal fibular fracture. Placed in a walking boot given crutches. She will need follow-up. She is given [place] here for pain. Discharge Plan Departure Patient Disposition: Home Clinical Impression: Closed left fibular fracture Instructions: DI for Ankle Fracture Activity Restrictions/Additional Instructions: *You have been diagnosed with left distal fibular fracture *What to do: At this time keep foot in splint at all times. You will need to follow-up with surgery. Sometimes these do require surgery and sometimes not. Use crutches. Try not to weightbear. *Continue to take medications as directed [place] 1 tablet every 6 hours if needed for severe pain Tylenol 650 mg every 4-6 hours if needed for [id number] *Follow up with your primary care provider in 2-3 days or call [phone] Call orthopedics tomorrow to schedule follow-up appointment *Return to ER if you should have increasing pain swelling or any new, worsening or concerning symptoms CONTROLLED SUBSTANCE DISCHARGE (Narcotoic/benzodiazepine/Flexeril/Phenergan) 1. You have been prescribed narcotic medications, it does have acetaminophen/Tylenol/paracetamol in it, DO NOT TAKE MORE THAN 4,00mg in 24 hours of Tylenol. TRAMADOL DOES NOT CONTAIN TYLENOL 2. Please understand that we cannot provide further refills of narcotics, benzodiazepines or controlled substances through the ED and her pain management will need to be through your provider. 3. While on these medications you cannot drive or operate heavy machinery. 4. You cannot sign legal documents or perform any duties such as this. 5. As long as you're taking opiate pain medications he should also be taking a stool softener such as Colace, Dulcolax, MiraLAX or prune juice, to help avoid constipation. Prescriptions: New hydrocodone-acetaminophen 5-325 mg tablet 1 tab PO Q6H PRN (Reason: pain) Qty: 10 0RF No Action melatonin 3 mg Tablet 3 mg PO BEDTIME PRN (Reason: Sleep) hydrochlorothiazide 12.5 mg tablet 12.5 mg PO DAILY flaxseed 1,000 mg Capsule 1 mg PO DAILY Referrals: [facility] [Provider Group] Kylie Vargas DO [Primary Care Provider] - Stand Alone Forms: Patient Portal/API
[2023-02-27 19:50] VITALS: BP 182/92; PULSE 55; RESP 18; O2SAT 99
[2023-02-27] MEDS: HYDROCODONE/ACET 5/325 PREPACK 1 BOTTLE MISC (20:00)
== END 2023-02-27 20:57 | disposition home or self-care (01) ==
PROVIDERS: Emergency Provider Emergency Medicine; PCP Family Medicine
DX: S82.402A Unspecified fracture of shaft of left fibula, initial encounter for closed fracture (principal); W01.0XXA Fall on same level from slipping, tripping and stumbling without subsequent striking against object, initial encounter
CPT/HCPCS: 73610; 73630; 99283

== ENCOUNTER → 2023-05-28 13:17 | Outpatient (CLI) | payer OTHER, SELFPAY ==
--- NOTE | 2023-05-28 | DI.MG.S_ITS ---
BILATERAL DIGITAL DIAGNOSTIC MAMMOGRAM 3D/2D: 05/28/2023 CLINICAL: 1 year follow up from prior study. Comparison is made to exams dated: 04/25/2022 mammogram, 04/10/2021 mammogram, 01/19/2021 mammogram - [facility], and 02/06/2016 mammogram - [facility]. Both breasts are heterogeneously dense, which may obscure small masses (category c / 51-75% glandular tissue). There are stable benign post operative findings in the left breast. There are stable linear fine calcifications in the left breast at 8 o'clock anterior depth. No other significant masses, calcifications, or other findings are seen in either breast. IMPRESSION: BENIGN There is no mammographic evidence of malignancy. Linear and fine calcifications in the left breast demonstrate long-term stability and are benign. Left lumpectomy is stable. A 1 year screening mammogram is recommended. Exam findings were conveyed to the patient. Based on the Tyrer Cuzick model (a risk assessment model) the patient's lifetime risk is 13.6% and her 10 year risk is 3.6%. According to the ACR, ACS, and NCCN guidelines, an annual breast MRI exam along with mammogram is recommended if the patient's lifetime risk is 20% or greater. This exam was interpreted at Station ID: [id number]. NOTE: For mammograms, a report in lay terms will be sent to the patient. Approximately 15% of breast malignancies will not be visualized mammographically. In the management of a palpable breast mass, a negative mammogram must not discourage biopsy of a clinically suspicious lesion. Electronically Signed By: Mandeep Alfaro M.D. [facility] [place]:05/28/2023 15:20:15 letter sent: Normal Exam ACR BI-RADS Category 2: Benign Finding(s) 3342F
== END ==
PROVIDERS: PCP Family Medicine; Referring Provider Family Medicine; Visit Provider Family Medicine
DX: R92.8 Other abnormal and inconclusive findings on diagnostic imaging of breast (principal); N64.4 Mastodynia
CPT/HCPCS: 77066; G0279

== ENCOUNTER → 2024-07-16 16:04 | Outpatient (CLI) | payer OTHER, SELFPAY ==
--- NOTE | 2024-07-16 16:06 | DI.MG.S_ITS ---
BILATERAL DIGITAL SCREENING MAMMOGRAM 3D/2D WITH CAD: 07/16/2024 CLINICAL: Routine screening. Comparison is made to exams dated: 05/28/2023 mammogram, 04/25/2022 mammogram, and 01/19/2021 mammogram - [facility]. The breasts are heterogeneously dense, which may obscure small masses (category c / 51-75% glandular tissue). Current study was also evaluated with a Computer Aided Detection (CAD) system. There are benign post operative findings in the left breast. No significant masses, calcifications, or other findings are seen in either breast. There has been no significant interval change. IMPRESSION: BENIGN There is no mammographic evidence of malignancy. A 1 year screening mammogram is recommended. Based on the Tyrer Cuzick model (a risk assessment model) the patient's lifetime risk is 9.4% and her 10 year risk is 2.5%. According to the ACR, ACS, and NCCN guidelines, an annual breast MRI exam along with mammogram is recommended if the patient's lifetime risk is 20% or greater. This exam was interpreted at Station ID: [id number]. NOTE: For mammograms, a report in lay terms will be sent to the patient. Approximately 15% of breast malignancies will not be visualized mammographically. In the management of a palpable breast mass, a negative mammogram must not discourage biopsy of a clinically suspicious lesion. Electronically Signed By: Marjorie Obrien M.D., Ph.D. mary/danielito:07/17/2024 09:31:36 letter sent: Normal Exam ACR BI-RADS Category 2: Benign 3342F
== END ==
PROVIDERS: PCP Family Medicine; Referring Provider Family Medicine; Visit Provider Family Medicine
DX: Z12.31 Encounter for screening mammogram for malignant neoplasm of breast (principal); R92.333 Mammographic heterogeneous density, bilateral breasts
CPT/HCPCS: 77063; 77067